=== PATIENT | female | born 1955 | race Caucasian/White ===

== ENCOUNTER 2016-11-30 07:57 | Day surgery (SDC) | payer BC ==
[~2016-11-30] VITALS: Ht 170.2 cm; Wt 108.9 kg
[~2016-11-30 07:57] MED LIST: ALEVE220 MG PO; LORATADINE10 MG PO; SYNTHROID100 MCG PO; SYNTHROID88 MCG PO; VITAMIN D22000 UNIT PO
[2016-11-30] MEDS ORDERED: VITAMIN D50000 UNI1 PO (08:23)
--- NOTE | 2016-11-30 09:33 | NUR ---
11/30/16 0933 Marko Corona PT SLEEPING, SAT 100%. O2 DECREASED TO 2L VIA NC.
--- NOTE | 2016-12-03 09:12 | OR ---
[facility] [address], [place] [address] Signed PREOPERATIVE DIAGNOSES: Screening. Constipation. Diarrhea. POSTOPERATIVE DIAGNOSES: A 4 mm polyp at 70 cm. A 4 mm polyp at 85 cm. Long redundant colon. PROCEDURE: Colonoscopy without biopsy. ESTIMATED BLOOD LOSS: None. INDICATIONS: Jose Antonio is a 61-year-old female, who asked to see me for her initial screening colonoscopy. She has no lower GI complaints other than some intermittent constipation and diarrhea. There is no family history of colon cancer and polyps. She spoke of hysterectomy for which she was nauseated and woke up uncooperative. Later, she had thyroid surgery and stated she did fine. In the office, I gave Jose Antonio a booklet on colonoscopy, and we reviewed the nature of the test along with the risks including, but not limited to ga s, bloating, crampy abdominal pain, bleeding, perforation, requiring surgery, and missed diagnosis. We also discussed the need for IV conscious sedation. She had expressed understanding and wished to proceed. PROCEDURE NOTE: Jose Antonio was brought into endoscop y suite and placed in the left lateral decubitus position. She was quite anxious. In fact, she was quite concerned about her blood pressure cuff. In the end, we gave her 9 mg of Versed and 200 mcg of fentanyl. She was still talking to us and complaining o f abdominal pain with insertion of the scope. We did a rectal exam and this was unremarkable. The adult colonoscope was then inserted and it took a few minutes to get around the rectosigmoid junction because of a little bit of weight. With additional sedat i on, we finally made it through the sigmoid colon, up in the left colon. We had removed 2 of the polyps as stated above. We made our way into the transverse colon all the way up to the hub on the handle of the scope. We withdrew the scope several times, ad d ed additional sedation and never could get the scope to pass any further. Consequently, she needs a barium enema to evaluate the right colon and the proximal portion of the transverse colon. Nevertheless, her prep was quite excellent. The scope was then s l owly withdrawn. Again, she had been awake enough to talk to us and comment during the procedure. Once we were in the rectum, the scope was then retroflexed and we saw no additional pathology above the anal canal. After this, the gas was suctioned out and the colonoscope removed. Jose Antonio tolerated the procedure quite Electronically Signed By: MONTY RAMEY MD 12/03/16 0912 PATIENT NAME: JOSE ANTONIO GARCIA OPERATIVE REPORT DATE OF : 57 PHYSICIAN: MONTY RAMEY MD REPORT #: [id number] REPORT IS CONFIDENTIAL AND NOT TO BE RELEASED WITHOUT AUTHORIZATION [address] [address] Signed well. RECOMMENDATIONS: Jose Antonio will need an outpatient barium enema to evaluate the proximal colon. In the future, she will need an anesthesia provider with propofol for adequate sedation. MD JEFRY Vang/Sid /[id number] cc: MD Alfa Vang MD Electronically Signed By: MONTY RAMEY MD 12/03/16 0912 PATIENT NAME: JOSE ANTONIO GARCIA OPERATIVE REPORT DATE OF : 57 PHYSICIAN: MONTY RAMEY MD REPORT #: [id number] REPORT IS CONFIDENTIAL AND NOT TO BE RELEASED WITHOUT AUTHORIZATION
== END 2016-11-30 10:04 | disposition home or self-care (01) ==
LOC: DS 07:57 → OPS 07:57 → DS 09:45 → OPS 10:04
PROVIDERS: Colon & Rectal Surgery
PROC: 0DJD8ZZ Inspection of Lower Intestinal Tract, Via Natural or Artificial Opening Endoscopic (ICD-10-PCS; principal; 2016-11-30 09:00)
DX: K59.00 Constipation, unspecified (principal); E78.5 Hyperlipidemia, unspecified; M19.90 Unspecified osteoarthritis, unspecified site; E89.0 Postprocedural hypothyroidism; Z88.0 Allergy status to penicillin; Z90.89 Acquired absence of other organs; Z90.710 Acquired absence of both cervix and uterus; Z79.899 Other long term (current) drug therapy
CPT/HCPCS: 99152; 99153; J2250; J2405; J3010; J7120

== ENCOUNTER 2018-09-26 14:13 | Emergency (ER) | payer BC ==
[~2018-09-26] VITALS: Ht 170.2 cm; Wt 108.9 kg
[~2018-09-26 14:13] MED LIST changes: +VITAMIN D50000 UNI1 PO
[2018-09-26] MEDS ORDERED: DICLOFENAC SOD100 G1 TOP (15:34)
== END 2018-09-26 16:29 | disposition home or self-care (01) ==
LOC: ED 14:13
DX: M79.674 Pain in right toe(s) (principal); Z90.710 Acquired absence of both cervix and uterus; Z88.0 Allergy status to penicillin; Z90.89 Acquired absence of other organs; Z79.899 Other long term (current) drug therapy
CPT/HCPCS: 73630; 99283-25